=== PATIENT | female | born 1990 | race American Indian/Alaskan Native ===

== ENCOUNTER 2021-07-26 18:57 | Emergency (ER) | payer OTHER ==
[2021-07-26 19:25] VITALS: BP 119/68
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
[2021-07-26 23:05] LABS: Bilirubin,Urine NEG (Negative); Blood,Urine NEG (Negative); Color,Urine Yellow (Yellow); Mucus,Urine 3+ /HPF; Protein,Urine <15 mg/dL mg/dL (Negative)
[2021-07-26 23:10] LABS: HCG Qualitative,Urine Negative (Negative)
== END 2021-07-26 23:30 | disposition home or self-care (01) ==
LOC: ED 18:57
DX: M25.572 Pain in left ankle and joints of left foot (principal); R51.9 Headache, unspecified; M25.512 Pain in left shoulder; E78.00 Pure hypercholesterolemia, unspecified; M54.9 Dorsalgia, unspecified; R10.9 Unspecified abdominal pain; V49.49XA Driver injured in collision with other motor vehicles in traffic accident, initial encounter; X58.XXXA Exposure to other specified factors, initial encounter; Y93.89 Activity, other specified; Y92.89 Other specified places as the place of occurrence of the external cause; Y99.8 Other external cause status
CPT/HCPCS: 81001; 81025; 99283